=== PATIENT | male | born 1935 | race Caucasian/White ===

== ENCOUNTER → 2018-11-03 | Outpatient (CLI) | payer MEDICARE, OTHER ==
[~2018-11-03] MED LIST: AMOX500 PO; ASPI81CH PO; ATOR10 PO; BENAML20/5 PO; CARB200 PO; CHOL10002 PO; DIURETIC; DOCU100 PO; FURO40 PO; GLIP5 PO; HYDACE5 PO; HYDR1TAB94 PO; METF500C PO; METO100ER; METO25ER PO; Metformin HCl1000 MG PO; OXYACE5T PO; RXAMOX500 PO; TAMS.4ER PO; TELM80; [UNRECOGNIZED DRUG - REMARK] PO
== END | disposition home or self-care (01) ==
LOC: PLD 11:01 → LAB SHORT 11:01
DX: C44.42 Squamous cell carcinoma of skin of scalp and neck (principal)
CPT/HCPCS: 88305

== ENCOUNTER → 2018-11-23 | Outpatient (CLI) | payer MEDICARE, OTHER | END | disposition home or self-care (01) | LOC: LAB SHORT 14:18 → PLD 14:18 | DX: C44.42 Squamous cell carcinoma of skin of scalp and neck (principal) | CPT/HCPCS: 88305 ==